=== PATIENT | female | born 1985 | race Caucasian/White ===

== ENCOUNTER 2018-05-01 18:11 | Outpatient (CLI) | payer MEDICAID ==
[~2018-05-01] VITALS: Ht 157.5 cm; Wt 79.4 kg
[2018-05-01 18:34] VITALS: BP 130/75; Ht 157.5 cm; Wt 79.4 kg
[2018-05-01] MEDS ORDERED: ACET-1966 PO (18:37)
[2018-05-01] MEDS ORDERED: PNV1COMB5 (18:37)
== END 2018-05-01 18:56 | disposition home or self-care (01) ==
LOC: OB 18:11 → UNDOADMOB 18:11 → OB 18:11 → L&D 18:11 → OB 18:56 → UNDODISOB 18:56 → L&D 18:56 → EDSTATUS 05-07 13:06
PROVIDERS: ATTEND Obstetrics & Gynecology
DX: O26.892 Other specified pregnancy related conditions, second trimester (principal); R51 Headache; R60.0 Localized edema; Z3A.21 21 weeks gestation of pregnancy
CPT/HCPCS: 59025; G0463; 99213; G0378; G0379

== ENCOUNTER 2018-09-09 07:11 | Inpatient (IN) | payer MEDICAID ==
[~2018-09-09] VITALS: Ht 160 cm; Wt 88.5 kg
[~2018-09-09 07:11] MED LIST: ACET-1966 PO; ACET500T68 PO; AZIT-1 PO; PNV1COMB5
[2018-09-09 07:45] VITALS: BP 133/81
[2018-09-09 07:55] VITALS: Ht 160 cm; Wt 88.5 kg
[2018-09-09] MEDS ORDERED: OXYTOCIN 30 UNIT/D5LR 500 ML 500 ML IV PRN ×2 (14:41→14:44)
[2018-09-09] MEDS ORDERED: FAMOTIDINE(*) 20MG/50ML PREMIX 50 ML IVPB PRN (14:41)
[2018-09-09] MEDS ORDERED: LIDOCAINE/SOD BICARB 8.4% SYR SC PRN (14:45)
[2018-09-09] MEDS ORDERED: TERBUTALINE SULF 1 MG/ML VIAL IVP PRN (14:45)
[2018-09-09] MEDS ORDERED: LIDOCAINE 1% LOCAL 300 MG/30ML INJ PRN (14:45)
[2018-09-09] MEDS ORDERED: METOCLOPRAMIDE 10 MG/2 ML SDV IVP PRN (14:45)
[2018-09-09] MEDS ORDERED: fentaNYL CITR 100 MCG/2 ML AMP IVP PRN (14:45)
--- NOTE | 2018-09-09 14:50 | History & Physical ---
History of Present Illness Age of Patient: 33 : 2 Para or TPAL: 0 EDC per LMP: Sep 13, 2018 Estimated Gestational Age: 39.3 Chief Complaint Labor History of Present Illness Presents for labor evaluation. Was 3-4 cm on admission and has slowly progressed with irregular contraction pattern to 5 cm. Membranes feel intact. Recommending her to augment and AROM and get her delivered. uncomplicated. Past Medical, Surgical, Family and Obstetric Histories reviewed. Please see [facility] [place] chart. History Allergies: Coded Allergies: No Known Drug Allergies (Unverified , 05/01/18) Family History: Patient reports no known family medical history. Med Rec Home Meds Reported Medications Acetaminophen (TYLENOL EXTRA STRENGTH) 500 Mg Tablet, 500 MG PO, TAB 08/21/18 Pnv #116/Iron Fumarate/Fa/Dha (EXPECTA COMBO PACK) 1 Each Combo..pkg 05/01/18 Review of Systems All Systems Reviewed/Normal: Yes, Except as Noted Exam General Exam Vital Signs Vital Signs Date Time Temp Pulse Resp B/P (MAP) Pulse Ox O2 Delivery O2 Flow Rate FiO2 09/09/18 07:45 99.0 114 14 133/81 (98) 96 Room Air General Apperance: Alert/Awake/No Acute Distress Neuro: No Gross deficits Cardiovascular: Regular Rate and Rhythm Respiratory: No Respiratory Distress Abdomen: Soft, Non-Tender, Non-Distended Extremities: No Cyanosis,Clubbing or Edema Integumentary: Skin Intact without Lesions or Rash Psychological: Alert & Oriented X3 Cervical Dialation: 5 Cervical Effacement (%): 100 Cervical Consistency: Soft Cervical Position: Anterior Station: -2 Presentation: Vertex Fetus FHT Accelerations: 15X15 FHT Decelerations: Early FHT Category: I Assessment and Plan 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 Will augment and expect . GBS negative. STEVE VALDOVINOS MD Sep 09, 2018 14:50
[2018-09-09 15:19] LABS: PLATELET COUNT, AUTOMATED 276 K/uL (150-450)
[2018-09-09] MEDS: LR(*) 1000 ML BAG 1,000 ML IV PRN ×2 (15:25→17:24)
[2018-09-09] MEDS ORDERED: LIDOCAINE/PF 2% 200MG/10ML AMP 200 MG/10 ML AMPUL EPI PRN (17:05)
[2018-09-09] MEDS ORDERED: LIDO/EPI 2% MPF 1:200,000 20ML EPI PRN (17:05)
[2018-09-09] MEDS ORDERED: FENTANYL/ROPIVACAINE 100 ML BAG EPI PRN (17:05)
[2018-09-09] MEDS ORDERED: fentaNYL CITR 100 MCG/2 ML AMP IT PRN (17:05)
[2018-09-09] MEDS ORDERED: BUPIVACAINE 0.25% MPF INJ EPI PRN (17:05)
[2018-09-09] MEDS ORDERED: BUPIVACAINE 0.5% INJ 30ML VIAL EPI PRN (17:05)
[2018-09-09] MEDS ORDERED: EPIDURAL KEYS XX PRN (17:05)
[2018-09-09] MEDS ORDERED: ONDANSETRON 4 MG/2 ML VIAL ONE (17:09)
--- NOTE | 2018-09-09 18:16 | Procedure Note ---
Anesthetic Placement Note Anesthesia Plan: CSE Permit for Anesthesia Signed: Yes Anesthesia Technique: Patient Sitting Anesthesia Prep: Chlorhexidine Interspace: L 3-4 Local Anesthetic: 1% Lidocaine Amount Local - cc's: 3 Anesthesia Needle: 17g Touhy/Schliff Anesthesia Attempts: 1 Loss of Resistance: Normal Saline Depth of DARCY (cm): 6 Intrathecal Needle: 27 Gauge Pencan Cerebral Spinal Fluid: Yes, Clear Catheter Insertion (cm): 4 (9cm @skin) Catheter Type: Parnell - Spring Wound Epidural Dressing: Tegaderm, Tape Anesthesia Tray: Lot Number ([id number]), Expiration Date (06/22), Reference Number ([id number]) Anesthesia Medications: Intrathecal Dose: mcg Fentanyl (10), mg Marcaine MPF (2.5), Time (1730) Epidural Test Dose: 1.5 Lido/Epi (1:200,000), Dose - mL (3), Time (1732), Negative Epidural Infusion: 0.2% Ropivicaine, With Fentanyl 2mcg/ml, Start Time: (1740) Epidural Pump Setting: Bolus Dose - mL (8), Lockout - Minutes (20), Maintenance Rate - mL/hr (6), Maximum per Hour - mL (30) Complications: None Comment: Zofran 4mg IV SOL JORGE CRNA Sep 09, 2018 18:16
--- NOTE | 2018-09-09 18:19 | Anesthesia OB Pre-Anes Eval ---
History of Present Illness Anesthesia Start Date: Sep 09, 2018 Anesthesia Start Time: 17:15 OB Anesthesia Diagnosis: spontaneous labor EDC: Sep 13, 2018 : 2 Para: 0 Pain Ratin Result Diagram: 09/09/18 1507 Height (Inches): 63.00 Weight (Pounds): 195 BMI (kg/m2): 34.50 Past Medical History Medical History: obesity Surgical History: no surgical history Attended Childbirth Classes?: No Hx Anesthesia Reactions: No Hx Family Anesthesia Reaction: No Current Medications: pitocin Home Meds Reported Medications Acetaminophen (TYLENOL EXTRA STRENGTH) 500 Mg Tablet, 500 MG PO, TAB 08/21/18 Pnv #116/Iron Fumarate/Fa/Dha (EXPECTA COMBO PACK) 1 Each Combo..pkg 05/01/18 Allergies: Coded Allergies: No Known Drug Allergies (Unverified , 05/01/18) Anesthesia OB ROS Neurological: No migraines/headaches, No seizures, No neuropathy, No other ENT: Denies Tooth caps, Denies Loose teeth, Denies Chipped teeth, Denies Dentures, Denies Bridges, Denies Retainers, Denies Veneers, Denies Implants, Denies Tongue ring, Denies Other Pulmonary: No asthma, No smoker (pks/day/yrs), No other Airway Class: lll Cardiovascular ROS: No edema, No arrhythmia, No other GI ROS: clear liquids Last Solids Date: Sep 09, 2018 Last Solids Time: 09:30 ROS: No Herpes, No STD(s), No Liver Disease, No Renal Disease, No Other Endocrine ROS: No diabetes, No gestational diabetes, No thyroid disorder, No other Musculoskeletal ROS: No low back pain, No low back injury, No scoliosis, No ot her ASA Classification: 3 Assessment and Plan Anesthesia Plan: SOL MOREIRA CRNA Sep 09, 2018 18:19
[2018-09-09] MEDS: DLR(*) 1000 ML BAG 1,000 ML IV SCH (18:29)
--- NOTE | 2018-09-09 21:41 | Anesthesia Progress Note ---
Progress/Maintenance Anesthesia Note Date: Sep 09, 2018 Anesthesia Note Time: 21:35 Pain Intensity: 3 Pump: On Pump Rate (ML/HR): 6 Sensory Level: cramping and oressure Motor Level: Bending Knees-Bilateral Dilatation: 9 Drug Bolus: Other Anesthesia Treatment: Fentanyl 90 mcg SOL JORGE CRNA Sep 09, 2018 21:41
[2018-09-09] MEDS ORDERED: CALCIUM CARBONATE 500 MG CHEW PO PRN (23:10)
[2018-09-09] MEDS ORDERED: ONDANSETRON 4 MG/2 ML VIAL IVP PRN (23:10)
[2018-09-09] MEDS ORDERED: CARBOPROST TROMETHAM 250MCG/ML IM ONLY ONE ×2 (23:31→23:45)
[2018-09-09] MEDS ORDERED: METHYLERGONOVINE MAL 0.2MG/ML ONE (23:31)
[2018-09-09] MEDS ORDERED: ePHEDrine 25 MG/5 ML DISP.SYR IVP ONE (23:35)
[2018-09-09] MEDS: ACETAMINOPHEN 500 MG TAB PO PRN (23:42)
[2018-09-09] MEDS ORDERED: ePHEDrine 25 MG/5 ML DISP.SYR IVP PRN (23:45)
[2018-09-09] MEDS ORDERED: METHYLERGONOVINE MAL 0.2MG/ML IM ONE (23:45)
[2018-09-10] MEDS: DLR(*) 1000 ML BAG 1,000 ML IV SCH ×2 (00:41→08:59)
--- NOTE | 2018-09-10 01:01 | Anesthesia Progress Note ---
Progress/Maintenance Anesthesia Note Date: Sep 10, 2018 Anesthesia Note Time: 00:50 Pain Intensity: 5 Pump: On Pump Rate (ML/HR): 6 Sensory Level: Pushing , lots of pressur Motor Level: Bending Knees-Bilateral Dilatation: 10 Position: Semi-Fowlers Drug Bolus: 0.25% Marcaine (5cc) SOL JORGE CRNA Sep 10, 2018 01:01
[2018-09-10] MEDS ORDERED: INFLUENZA VIRUS VAC 0.5ML SYR IM ONLY ONE (02:10)
[2018-09-10] MEDS ORDERED: HYDROCORTISONE 2.5% CR 30GM TB PR PRN (02:10)
[2018-09-10] MEDS ORDERED: DIPHTH/TETANUS/ACEL. PERTUSSIS IM ONLY ONE (02:10)
[2018-09-10] MEDS ORDERED: MEASLES,MUMP,RUBELLA VAC 0.5ML SUBQ ONE (02:10)
[2018-09-10] MEDS ORDERED: BENZOCAINE 20% 60 ML BTL TP PRN (02:10)
[2018-09-10] MEDS ORDERED: ACETAMINOPHEN 325 MG TAB PO PRN (02:10)
[2018-09-10] MEDS ORDERED: GLYCERIN/WITCH HAZEL LEAF 1 PK TP PRN (02:10)
[2018-09-10] MEDS ORDERED: LANOLIN OINT 7 GM TUBE TP PRN (02:10)
[2018-09-10] MEDS ORDERED: MAGNESIUM HYDROXIDE* 30ML UDCP PO PRN (02:10)
--- NOTE | 2018-09-10 02:13 | Anesthesia Progress Note ---
Assessment and Plan Anesthesia Plan: CSE Anesthesia Stop Day: Sep 10, 2018 Anesthesia Stop Time: 02:10 SOL JORGE CRNA Sep 10, 2018 02:13
--- NOTE | 2018-09-10 02:18 | OB Delivery Note ---
Delivery Note Vaginal Delivery Type: Spont. Vaginal Delivery Delivery Date: Sep 10, 2018 Delivery Time: 01:45 Estimated Gestational Age(wks): 39.3 Delivery Anesthesia: Epidural Sex: Male [place] Apgars: 1 Minute (8), 5 Minute (9) Repair Needed: Laceration, 1st Degree Estimated Blood Loss: 200 Delivery Complications: Laceration Notes: Presented in early labor. Augmentation required for active labor. Meconium fluid, thin noted. Progressed from 3-4 cm on admission to 4 cm by 1145 and 6 cm by 1746. Completely dilated by 2357. Pushing effectively and gradual increase in baseline during second stage labor. Still good variability and early decelerations throughout. Delivery eminent during this time of elevation in FHTs. JESUSITA position noted at delivery over first degree laceration. Terminal meconium noted. Good respiratory effort, tone and cry at and responded to resusitative efforts. Placenta delivered spontaneous and intact. Repair with 2-0 Chromic with good result. Nuchal cord x 1. Government Relations Analyst in Attendence: No Copies to: STEVE VALDOVINOS MD ; STEVE VALDOVINOS MD Sep 10, 2018 02:18
[2018-09-10] MEDS: APAP/HYDROCODONE 325/5 TAB PO PRN ×2 (05:46→15:09)
[2018-09-10] MEDS: IBUPROFEN 800 MG TAB PO SCH ×2 (08:05→17:11)
[2018-09-10] MEDS: DOCUSATE CALCIUM 240 MG CAP PO SCH ×2 (08:05→20:28)
[2018-09-10 08:10] VITALS: BP 105/62
--- NOTE | 2018-09-10 08:14 | OB/GYN Progress Note ---
OB Subjective Progress Notes Subjective No problems. Pain controlled and bleeding light. GI: NEG Nausea : Voiding Well Pain: Mild OB Objective Physical Exam Vital Signs Date Time Temp Pulse Resp B/P (MAP) Pulse Ox O2 Delivery O2 Flow Rate FiO2 09/09/18 07:45 99.0 114 14 133/81 (98) 96 Room Air Intake and Output 09/10/18 07:00 Intake Total 0 ml Output Total 1350 ml Balance -1350 ml Intake Oral 0 ml Output Urine Total 1350 ml # Voids 1 General Appearance: Alert/Awake/No Acute Distress Neurological: No Gross deficits Cardiovascular: Normal Rhythm & Peripheral Pulses Respiratory: No Respiratory Distress Abdomen: Soft, Non-Tender, Non-Distended Extremities: No Cyanosis,Clubbing or Edema Integumentary: Skin Intact without Lesions or Rash Psychological: Alert & Oriented X3 Result Diagram: 09/09/18 1507 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
[2018-09-10 11:31] VITALS: BP 107/69
--- NOTE | 2018-09-10 13:56 | Anesthesia Post Eval Note ---
Anesthesia Post Eval Note Vital Signs 09/10/18 11:31 Temp 98.2 Pulse 100 Resp 18 B/P (MAP) 107/69 (82) Pulse Ox 95 O2 Delivery Room Air Pt able to participate in Eval: Yes Cardiovascular Status: Satisfactory Respiratory Status: Satisfactory Pain Managment: Satisfactory PO Nausea/Vomiting: Satisfactory Temperature Management: Satisfactory Mental Status: Satisfactory, Alert, Oriented X3 Post-Op Hydration Status: Satisfactory, Tolerating PO Well, Voiding w/o Difficulty Anesthesia Type: SOL MOREIRA CRNA Sep 10, 2018 13:56
[2018-09-10 15:11] VITALS: BP 108/66
[2018-09-10 19:30] VITALS: BP 104/72
[2018-09-10 22:35] VITALS: BP 129/89
[2018-09-11] MEDS: IBUPROFEN 800 MG TAB PO SCH ×3 (02:01→17:04)
[2018-09-11 02:20] VITALS: BP 113/75
[2018-09-11 09:00] VITALS: BP 122/85
[2018-09-11] MEDS: DOCUSATE CALCIUM 240 MG CAP PO SCH ×2 (09:27→21:34)
--- NOTE | 2018-09-11 09:57 | OB/GYN Progress Note ---
OB Subjective Progress Notes Subjective 33 yo female PP day #1 s/p . Tolerating diet and activity. Trying to breast feed, having some issues with persisting carpal tunnel symptoms. Normal lochia. Baby on O2 with bili-lights, not ready for discharge today. GI: NEG Nausea, NEG Vomiting : Voiding Well, Vaginal Bleeding, Moderate Pain: Moderate, Tolerating PO Pain Meds Neurological: No Headache OB Objective Physical Exam Vital Signs Date Time Temp Pulse Resp B/P (MAP) Pulse Ox O2 Delivery O2 Flow Rate FiO2 09/11/18 02:20 98.0 86 18 113/75 (88) 09/10/18 19:30 98 Room Air Intake and Output 09/11/18 06:59 Intake Total 2160 ml Balance 2160 ml Intake Oral 660 ml IV Total 1500 ml # Voids 4 General Appearance: Alert/Awake/No Acute Distress Neurological: No Gross deficits Cardiovascular: Normal Rhythm & Peripheral Pulses Respiratory: No Respiratory Distress Abdomen: Soft, Non-Tender, Non-Distended, Fundus Firm, Non-Tender, Bowel Sounds Present Extremities: No Cyanosis,Clubbing or Edema Integumentary: Skin Intact without Lesions or Rash Psychological: Alert & Oriented X3 Result Diagram: 09/11/18 0615 Assessment and Plan Post Day: 1 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 Plan to discharge home tomorrow. Will need follow-up in office 6 weeks post - sooner as needed. BOB LUGO Sep 11, 2018 09:57
[2018-09-11] MEDS ORDERED: IBUP800T37 PO (10:06)
[2018-09-11] MEDS ORDERED: DOCU-416 PO (10:06)
[2018-09-11 13:20] VITALS: BP 94/84
[2018-09-11 15:30] VITALS: BP 118/79
[2018-09-11 19:42] VITALS: BP 107/84
[2018-09-11 23:33] VITALS: BP 122/85
[2018-09-11] MEDS: ACETAMINOPHEN 500 MG TAB PO PRN (23:44)
[2018-09-12] MEDS: IBUPROFEN 800 MG TAB PO SCH ×3 (01:44→16:53)
[2018-09-12 04:12] VITALS: BP 125/81
[2018-09-12] MEDS: DOCUSATE CALCIUM 240 MG CAP PO SCH (08:34)
[2018-09-12 08:50] VITALS: BP 123/84
--- NOTE | 2018-09-12 10:51 | OB/GYN Progress Note ---
OB Subjective Progress Notes Subjective Feeling well. No problems. GI: NEG Nausea : Voiding Well Pain: Mild OB Objective Physical Exam Vital Signs Date Time Temp Pulse Resp B/P (MAP) Pulse Ox O2 Delivery O2 Flow Rate FiO2 09/12/18 04:12 98.4 87 16 125/81 (96) 96 Room Air Intake and Output 09/12/18 07:00 Intake Total 240 ml Balance 240 ml Intake Oral 240 ml # Voids 2 # Bowel Movements 1 General Appearance: Alert/Awake/No Acute Distress Neurological: No Gross deficits Cardiovascular: Normal Rhythm & Peripheral Pulses, Regular Rate and Rhythm Respiratory: No Respiratory Distress, Clear to Auscultation Abdomen: Soft, Non-Tender, Non-Distended, Fundus Firm, Non-Tender, Bowel Sounds Present Extremities: No Cyanosis,Clubbing or Edema Integumentary: Skin Intact without Lesions or Rash Psychological: Alert & Oriented X3, Appropriate Mood & Affect Result Diagram: 09/11/18 0615 Assessment and Plan Problems: (1) 39 weeks gestation of (2) care and examination immediately after delivery Assessment & Plan: Discharge to room in until her baby is cleared for discharge. (3) state STEVE VALDOVINOS MD Sep 12, 2018 10:51
--- NOTE | 2018-09-12 10:53 | OB/GYN Discharge Summary ---
Discharge Summary Reason for Hosp/Final Diag: (1) 39 weeks gestation of (2) care and examination immediately after delivery (3) state L[place] Vital Signs Vital Signs Date Time Temp Pulse Resp B/P (MAP) Pulse Ox O2 Delivery O2 Flow Rate FiO2 09/12/18 04:12 98.4 87 16 125/81 (96) 96 Room Air Weight (Pounds): 195 Result Diagram: 09/11/18 0615 Condition: Improved Discharge: Rooming In Home Meds Reported Medications Acetaminophen (TYLENOL EXTRA STRENGTH) 500 Mg Tablet, 500 MG PO, TAB 08/21/18 Pnv #116/Iron Fumarate/Fa/Dha (EXPECTA COMBO PACK) 1 Each Combo..pkg 05/01/18 Follow up Referrals: TRANSPLANTER - In 6 Weeks @ [facility] with STEVE SIDDIQUI MD Follow up with: Dr. Siddiqui [phone] Follow up in: 6 wks PP or PO Discharge Diet: As Tolerates Discharge Activity: As Tolerates, No Heavy Lifting x 6 wks, No Heavy Lifting > 10lb, Pelvic Rest Copies to: STEVE SIDDIQUI MD ; STEVE SIDDIQUI MD Sep 12, 2018 10:53
== END 2018-09-12 17:05 | disposition home or self-care (01) | DRG 807 ==
LOC: OB 07:11 → PED 09-10 03:42
PROVIDERS: ADMIT Obstetrics & Gynecology; ATTEND Obstetrics & Gynecology
PROC: 10E0XZZ Delivery of Products of Conception, External Approach (ICD-10-PCS; principal; 2018-09-10)
PROC: 10907ZC Drainage of Amniotic Fluid, Therapeutic from Products of Conception, Via Natural or Artificial Opening (ICD-10-PCS; 2018-09-10)
PROC: 0HQ9XZZ Repair Perineum Skin, External Approach (ICD-10-PCS; 2018-09-10)
DX: O77.0 Labor and delivery complicated by meconium in amniotic fluid (principal); Z37.0 Single live birth; Z3A.39 39 weeks gestation of pregnancy; O70.0 First degree perineal laceration during delivery
CPT/HCPCS: 36415; 84112; 85025; 85027; 86703; 86850; 86900; 86901; J2405; J2590; J3010; J7120